=== PATIENT | female | born 1980 | race Caucasian/White ===

== ENCOUNTER 2019-04-03 11:27 | Day surgery (SDC) | payer OTHER ==
[2019-04-02 11:33] VITALS: BMI 21.6
[2019-04-03] MEDS ORDERED: Heparin 5,000 UNITS/ML VIAL ONE (12:54)
[2019-04-03 13:06] LABS: BHCG - Serum Negative (NEGATIVE); Pregs Control Background? CLEAR/WHITE (CLR/WHITE); Pregs Control Bar Appear? YES (CONTROL BAR)
[2019-04-03] MEDS ORDERED: Sodium Chloride 0.9% 20 ML ONE (13:41)
[2019-04-03] MEDS ORDERED: Bupivacaine/Epinephrine 0.25% 30 ML VIAL ONE (13:41)
[2019-04-03] MEDS ORDERED: Lidocaine 1% (PF) 30 ML VIAL ONE (13:41)
[2019-04-03] MEDS ORDERED: Gentamicin 80 MG/2 ML VIAL ONE (13:41)
[2019-04-03] MEDS ORDERED: Midazolam HCl 2 mg/2 ml Vial ONE (13:43)
[2019-04-03] MEDS ORDERED: Fentanyl 250 MCG/5 ML VIAL ONE ×2 (13:43→13:56)
[2019-04-03] MEDS ORDERED: EPINEPHrine 1 MG/ML AMP ONE (13:44)
[2019-04-03] MEDS ORDERED: Lidocaine 2% Jelly 5 ML TUBE ONE (13:57)
[2019-04-03] MEDS ORDERED: Bupivacaine 0.25% HCL 30 ML VIAL ONE (15:03)
[2019-04-03] MEDS ORDERED: PROPOFOL 200 MG/20 ML VIAL ONE (15:43)
[2019-04-03] MEDS ORDERED: PHENYLEPHRINE-NS 100 MCG/ML 10 ML SYRINGE ONE (15:43)
[2019-04-03] MEDS ORDERED: ePHEDrine 50 MG/ML VIAL ONE (15:43)
[2019-04-03] MEDS ORDERED: Lidocaine 1% PF 5 ML VIAL ONE (15:43)
[2019-04-03] MEDS ORDERED: Glycopyrrolate 0.2 MG/ML 5 ML SYRINGE ONE (15:43)
[2019-04-03] MEDS ORDERED: Ondansetron PF 4 MG/2 ML Vial ONE (15:43)
[2019-04-03] MEDS ORDERED: Dexamethasone 20 MG/5 ML VIAL ONE (15:43)
[2019-04-03] MEDS ORDERED: Rocuronium Bromide 10 MG/ML (10ML VIAL) ONE (15:43)
[2019-04-03] MEDS ORDERED: Promethazine HCl 25 MG/ML VIAL ONE (17:20)
--- NOTE | 2019-04-06 10:58 | OP ---
DATE OF PROCEDURE: 04/03/2019 PREOPERATIVE DIAGNOSIS: Excess abdominal skin. POSTOPERATIVE DIAGNOSIS: Excess abdominal skin. PROCEDURE PERFORMED: Abdominoplasty. DESCRIPTION OF PROCEDURE: Following induction of adequate anesthesia, the patient was prepped and draped in usual sterile fashion in supine position. A low transverse abdominal incision was made. Dissection was carried sharply down through a plane just superficial to the abdominal fascia. Dissection was carried superiorly. The umbilicus was circumincised with dissection being made continuous more posterior and inferior dissection. A paramedian dissection was then carried out to expose the anterior abdominal wall. The anterior abdominal wall was then plicated. drain was placed. The patient was placed in a flexed position A 2-0 V-Loc suture was used to quilt the flap down to the anterior abdominal wall as well as for the low-transverse Mahesh's fascia closed. Remainder of the closure was done with 0 PDS suture and 3-0 Monocryl suture. The umbilicus was incised through a inverted T incision with 3-0 PDS suture to tether umbilicus leading to the abdominal wall and then 3-0 PDS suture and 3-0 Prolene suture for the skin clips. The patient tolerated the procedure well. All gabriel were copiously irrigated and inspected for meticulous hemostasis prior to closure. Job ID: [id number] [facility]
== END 2019-04-03 20:00 | disposition home or self-care (01) ==
LOC: SDC 11:27
PROVIDERS: ATTEND Plastic Surgery
PROC: 0J080ZZ Alteration of Abdomen Subcutaneous Tissue and Fascia, Open Approach (ICD-10-PCS; principal; 2019-04-03)
DX: L98.7 Excessive and redundant skin and subcutaneous tissue (principal); E07.9 Disorder of thyroid, unspecified; Z91.040 Latex allergy status; Z91.048 Other nonmedicinal substance allergy status
CPT/HCPCS: 84703; J0131; J0171; J0690; J1100; J1580; J1644; J2001; J2250; J2405; J2550; J2704; J3010; J3370; J3490; S0020